=== PATIENT | male | born 1935 | race Caucasian/White ===

== ENCOUNTER 2017-05-24 12:36 | Inpatient (IN) ==
[2017-05-24 15:55] LABS: Basophils # 0.1 10*3/uL (0.0-0.2); Basophils % 0.3 % (0.0-0.8); Eosinophils # 0.2 10*3/uL (0.0-0.87); Eosinophils % 0.9 % (0.00-10.9); Hematocrit 43.4 VOL% (42.0-52.0); Hemoglobin 14.9 GM/DL (14.0-18.0); Immature Granulocytes % 0.9 %; Immature Granulocytes Absolute 0.18 #; Lymphocytes # 1.4 10*3/uL (1.4-4.0); Mean Corpuscular HGB Conc 34.3 GM/DL (32-36); Mean Corpuscular Hemoglobin 31 PG (27-34); Mean Corpuscular Volume 91.2 FL (87-102); Mean Platelet Volume 10.7 FL (9.6-12.0); Monocytes # 1.2 10*3/uL (0.11-0.8); Monocytes % 5.9 % (1.7-12.7); Neutrophils # 16.9 10*3/uL (1.4-7.4); Platelet Count 213 T/CUMM (130-400); Red Blood Count 4.76 MC/CUMM (3.8-5.5); Red Cell Distribution Width 13.3 % (9.3-17.3); White Blood Count 19.8 T/CUMM (4-12)
[2017-05-24 16:03] LABS: PT Patient Result 10.7 SECS
[2017-05-24 16:34] LABS: Bilirubin,Total 1.1 MG/DL (0.2-1.0); CKMB % 1.8 %; Calcium 9.9 MG/DL (8.5-10.1); Osmolality,Calculated 272.2 MOS/KG (273-304); Total Protein 8.1 G/DL (6.4-8.3)
[2017-05-24 16:42] LABS: Troponin I Only 5.94 NG/ML (0.00-0.045)
[2017-05-24] MEDS ORDERED: cefTRIAXone 1,000 MG in SODIUM CHLORIDE 0.9% 100 ML IV STA (17:02)
[2017-05-24] MEDS ORDERED: ASPIRIN 325 MG TABLET PO STA (17:02)
[2017-05-24] MEDS ORDERED: NITROGLYCERIN 2% OINT 1 INCH/GM PACK TOP STA (17:02)
[2017-05-24] MEDS ORDERED: MORPHINE 2 MG/1 ML SYRINGE IV STA (17:02)
[2017-05-24] MEDS ORDERED: ONDANSETRON 4 MG/2 ML VIAL IV STA (17:02)
[2017-05-24] MEDS ORDERED: FUROSEMIDE 40 MG/4 ML VIAL IV STA (17:04)
[2017-05-24] MEDS ORDERED: ENOXAPARIN 100 MG/ML SYRINGE SUBCUT STA (17:04)
[2017-05-24] MEDS ORDERED: NITROGLYCERIN 2% OINT 1 INCH/GM PACK TOP ONE (17:38)
[2017-05-24] MEDS ORDERED: FUROSEMIDE 40 MG/4 ML VIAL ONE (17:38)
[2017-05-24] MEDS ORDERED: ENOXAPARIN 100 MG/ML SYRINGE SUBCUT ONE (17:38)
[2017-05-24] MEDS ORDERED: MORPHINE 2 MG/1 ML SYRINGE ONE (17:39)
[2017-05-24] MEDS ORDERED: ONDANSETRON 4 MG/2 ML VIAL ONE (17:39)
[2017-05-24] MEDS ORDERED: cefTRIAXone 1,000 MG VIAL ONE (17:39)
[2017-05-24] MEDS ORDERED: ASPIRIN 325 MG TABLET ONE (17:39)
[2017-05-24 18:12] LABS: Lactic Acid 2.2 MMOL/L (0.4-2.0)
[2017-05-24 18:31] LABS: Apearance,Urine CLOUDY (Clear); Bacteria,Urine Many /HPF (Few); Bilirubin,Urine Negative (Negative); Blood, Urine Moderate mg/dL (Negative); Glucose,Urine (UA) Negative (Negative); Ketones,Urine 5 mg/dL (Negative); Mucus,Urine Many /LPF (Occasional); Nitrite,Urine Negative (Negative); Protein,Urine 100 MG/DL; RBC,Urine 10 /HPF (0-4); Squamous Epithelial Cell,Urine Occasional /HPF (0-10); Urine Color Yellow (Yellow); Urine Specific Gravity 1.014 (1.001-1.035); Urine Urobilinogen < 2.0 EU/DL (0.2-1.0); WBC,Urine 475 /HPF (0-6)
[2017-05-24] MEDS ORDERED: GLUCAGON 1 MG VIAL IM PRN (22:02)
[2017-05-24] MEDS ORDERED: DEXTROSE 50% 25 GM/50 ML VIAL IV PRN (22:02)
[2017-05-24] MEDS ORDERED: PRAVASTATIN 40 MG TABLET PO SCH (22:02)
[2017-05-24] MEDS ORDERED: ONDANSETRON 4 MG/2 ML VIAL IV PRN (22:02)
[2017-05-24] MEDS ORDERED: MAGNESIUM SULF RIDER 2 GM in PREMIX 1 EACH IV PRN (22:02)
[2017-05-24] MEDS ORDERED: POTASSIUM CHLORIDE 20 MEQ TABLET PO PRN (22:02)
[2017-05-24] MEDS ORDERED: MAGNESIUM SULF RIDER 4 GM in PREMIX 1 EACH IV PRN (22:02)
[2017-05-24] MEDS: LEVOFLOXACIN INJ 500 MG in PREMIX 1 EACH IV SCH (22:13)
[2017-05-24] MEDS: ROSUVASTATIN 20 MG TABLET PO SCH (22:37)
[2017-05-24] MEDS: CARVEDILOL 3.125 MG TABLET PO SCH (22:38)
[2017-05-24] MEDS: TAMSULOSIN 0.4 MG CAPSULE PO SCH (22:38)
[2017-05-24] MEDS: INSULIN REGULAR 100 UNIT/ML SUBCUT SCH (22:56)
[2017-05-24] MEDS: SODIUM CHLORIDE 0.9% 1,000 ML IV SCH (22:56)
[2017-05-24] MEDS: NITROGLYCERIN 2% OINT 1 INCH/GM PACK TOP SCH (23:42)
[2017-05-25 04:19] LABS: Basophils # 0.1 10*3/uL (0.0-0.2); Basophils % 0.4 % (0.0-0.8); Eosinophils # 0.3 10*3/uL (0.0-0.87); Hematocrit 38.5 VOL% (42.0-52.0); Hemoglobin 13.3 GM/DL (14.0-18.0); Immature Granulocytes % 0.6 %; Immature Granulocytes Absolute 0.08 #; Lymphocytes # 1.2 10*3/uL (1.4-4.0); Mean Corpuscular HGB Conc 34.5 GM/DL (32-36); Mean Corpuscular Hemoglobin 31 PG (27-34); Mean Corpuscular Volume 90.2 FL (87-102); Mean Platelet Volume 11.6 FL (9.6-12.0); Monocytes # 0.8 10*3/uL (0.11-0.8); Monocytes % 5.8 % (1.7-12.7); Neutrophils # 11.2 10*3/uL (1.4-7.4); Neutrophils % 82.2 % (38.7-73.9); Platelet Count 189 T/CUMM (130-400); Red Blood Count 4.27 MC/CUMM (3.8-5.5); Red Cell Distribution Width 13.2 % (9.3-17.3); White Blood Count 13.6 T/CUMM (4-12)
[2017-05-25 04:52] LABS: Albumin 3.3 G/DL (3.4-5.0); Bilirubin,Total 0.7 MG/DL (0.2-1.0); Calcium 8.8 MG/DL (8.5-10.1); Osmolality,Calculated 272.4 MOS/KG (273-304); Total Protein 6.8 G/DL (6.4-8.3)
[2017-05-25 04:53] LABS: Risk Ratio 3.05; VLDL CHOLESTEROL 39.6 MG/DL
[2017-05-25 05:09] LABS: Lactic Acid 2.2 MMOL/L (0.4-2.0)
[2017-05-25] MEDS: NITROGLYCERIN 2% OINT 1 INCH/GM PACK TOP SCH ×4 (06:22→23:40)
[2017-05-25] MEDS ORDERED: ASPIRIN EC 325 MG TABLET PO SCH (09:00)
[2017-05-25] MEDS: MULTIVITAMIN (CENTRUM) TABLET PO SCH (09:11)
[2017-05-25] MEDS: INSULIN REGULAR 100 UNIT/ML SUBCUT SCH ×4 (09:11→21:17)
[2017-05-25] MEDS: MULTIVITAMIN (BEROCCA) TABLET PO SCH (09:11)
[2017-05-25] MEDS: CARVEDILOL 3.125 MG TABLET PO SCH ×2 (09:11→21:17)
[2017-05-25] MEDS: PANTOPRAZOLE 40 MG TABLET PO SCH (09:12)
[2017-05-25] MEDS: ENOXAPARIN 100 MG/ML SYRINGE SUBCUT SCH ×2 (09:31→21:17)
[2017-05-25] MEDS ORDERED: GLUCAGON 1 MG VIAL IM PRN (11:23)
[2017-05-25] MEDS ORDERED: DEXTROSE 50% 25 GM/50 ML VIAL IV PRN (11:23)
[2017-05-25] MEDS: cefTRIAXone 1,000 MG in SYRINGE 1 EACH IV SCH (11:37)
[2017-05-25] MEDS ORDERED: ZALEPLON 5 MG CAPSULE PO PRN (11:37)
[2017-05-25] MEDS ORDERED: guaiFENesin/DM ER 600-30 MG TABLET PO PRN (11:37)
[2017-05-25] MEDS ORDERED: BISACODYL 5 MG TABLET PO PRN (11:37)
[2017-05-25] MEDS: TAMSULOSIN 0.4 MG CAPSULE PO SCH (21:17)
[2017-05-25] MEDS: ROSUVASTATIN 20 MG TABLET PO SCH (21:17)
[2017-05-25] MEDS: LEVOFLOXACIN INJ 500 MG in PREMIX 1 EACH IV SCH (21:18)
[2017-05-25] MEDS: SODIUM CHLORIDE 0.9% 1,000 ML IV SCH (22:38)
[2017-05-25] MEDS: ACETAMINOPHEN 325 MG TABLET PO PRN (23:40)
[2017-05-26 05:11] LABS: Basophils # 0.1 10*3/uL (0.0-0.2); Basophils % 0.6 % (0.0-0.8); Eosinophils # 0.4 10*3/uL (0.0-0.87); Eosinophils % 4.7 % (0.00-10.9); Hematocrit 34.4 VOL% (42.0-52.0); Hemoglobin 11.7 GM/DL (14.0-18.0); Immature Granulocytes % 0.9 %; Immature Granulocytes Absolute 0.07 #; Lymphocytes # 1.2 10*3/uL (1.4-4.0); Lymphocytes % 14.8 % (21.2-54.2); Mean Corpuscular Hemoglobin 31 PG (27-34); Mean Corpuscular Volume 91.2 FL (87-102); Mean Platelet Volume 10.8 FL (9.6-12.0); Monocytes # 0.8 10*3/uL (0.11-0.8); Monocytes % 9.7 % (1.7-12.7); Neutrophils # 5.4 10*3/uL (1.4-7.4); Neutrophils % 69.3 % (38.7-73.9); Platelet Count 181 T/CUMM (130-400); Red Blood Count 3.77 MC/CUMM (3.8-5.5); White Blood Count 7.8 T/CUMM (4-12)
[2017-05-26 05:41] LABS: Calcium 8.6 MG/DL (8.5-10.1); Osmolality,Calculated 277.1 MOS/KG (273-304); Potassium 3.9 MMOL/L (3.5-5.1)
[2017-05-26] MEDS: NITROGLYCERIN 2% OINT 1 INCH/GM PACK TOP SCH ×3 (06:13→18:35)
[2017-05-26] MEDS: ASPIRIN CHEW 81 MG TABLET PO SCH (09:40)
[2017-05-26] MEDS: MULTIVITAMIN (BEROCCA) TABLET PO SCH (09:40)
[2017-05-26] MEDS: ENOXAPARIN 100 MG/ML SYRINGE SUBCUT SCH ×2 (09:41→21:49)
[2017-05-26] MEDS: PANTOPRAZOLE 40 MG TABLET PO SCH (09:41)
[2017-05-26] MEDS: MULTIVITAMIN (CENTRUM) TABLET PO SCH (09:41)
[2017-05-26] MEDS: CARVEDILOL 3.125 MG TABLET PO SCH ×2 (09:41→21:48)
[2017-05-26] MEDS ORDERED: DEXTROSE 50% 25 GM/50 ML VIAL IV PRN (09:46)
[2017-05-26] MEDS ORDERED: GLUCAGON 1 MG VIAL IM PRN (09:46)
[2017-05-26] MEDS: INSULIN REGULAR 100 UNIT/ML SUBCUT SCH ×4 (09:49→21:48)
[2017-05-26] MEDS: cefTRIAXone 1,000 MG in SYRINGE 1 EACH IV SCH (11:03)
[2017-05-26] MEDS: INSULIN GLARGINE 100 UNIT/ML SUBCUT SCH (15:14)
[2017-05-26] MEDS ORDERED: POTASSIUM CHLORIDE RIDER 10 MEQ in PREMIX 1 EACH IV PRN (16:24)
[2017-05-26] MEDS ORDERED: MAGNESIUM SULF RIDER 2 GM in PREMIX 1 EACH IV PRN (16:24)
[2017-05-26] MEDS ORDERED: SIMETHICONE CHEW 80 MG TABLET PO PRN (17:14)
[2017-05-26] MEDS ORDERED: MAGNESIUM HYDROXIDE SUSP 30 ML UDCUP PO PRN (17:14)
[2017-05-26] MEDS ORDERED: diphenhydrAMINE CAP 25 MG CAPSULE PO PRN (17:15)
[2017-05-26] MEDS: ROSUVASTATIN 20 MG TABLET PO SCH (21:48)
[2017-05-26] MEDS: TAMSULOSIN 0.4 MG CAPSULE PO SCH (21:48)
[2017-05-26] MEDS: LEVOFLOXACIN INJ 500 MG in PREMIX 1 EACH IV SCH (21:50)
[2017-05-27] MEDS: NITROGLYCERIN 2% OINT 1 INCH/GM PACK TOP SCH ×3 (02:24→12:10)
[2017-05-27] MEDS: SODIUM CHLORIDE 0.9% 1,000 ML IV SCH ×3 (04:59→17:00)
[2017-05-27 05:01] LABS: Basophils # 0.1 10*3/uL (0.0-0.2); Basophils % 0.9 % (0.0-0.8); Eosinophils # 0.5 10*3/uL (0.0-0.87); Hematocrit 33.6 VOL% (42.0-52.0); Hemoglobin 11.9 GM/DL (14.0-18.0); Immature Granulocytes % 0.8 %; Immature Granulocytes Absolute 0.06 #; Lymphocytes # 1.1 10*3/uL (1.4-4.0); Lymphocytes % 14.4 % (21.2-54.2); Mean Corpuscular HGB Conc 35.4 GM/DL (32-36); Mean Corpuscular Hemoglobin 31 PG (27-34); Mean Corpuscular Volume 88.4 FL (87-102); Monocytes % 12.2 % (1.7-12.7); Neutrophils # 5.2 10*3/uL (1.4-7.4); Neutrophils % 65.7 % (38.7-73.9); Platelet Count 193 T/CUMM (130-400); Red Cell Distribution Width 13.1 % (9.3-17.3); White Blood Count 7.9 T/CUMM (4-12)
[2017-05-27 05:35] LABS: Calcium 8.2 MG/DL (8.5-10.1)
[2017-05-27] MEDS ORDERED: DIAZEPAM 5 MG TABLET PO ONE (06:00)
[2017-05-27] MEDS ORDERED: diphenhydrAMINE CAP 25 MG CAPSULE PO ONE (06:00)
[2017-05-27] MEDS ORDERED: HEPARIN/NACL 0.9% 2 UNITS/ML 2,000 ML IV ONE (06:51)
[2017-05-27] MEDS ORDERED: LIDOCAINE 1% 20 ML VIAL ONE (06:51)
[2017-05-27] MEDS ORDERED: VERAPAMIL 5 MG/2 ML VIAL ONE (07:11)
[2017-05-27] MEDS ORDERED: NITROGLYCERIN DRIP 50 MG/250 ML BOTTLE IV ONE (07:11)
[2017-05-27] MEDS: ASPIRIN CHEW 81 MG TABLET PO SCH ×2 (07:22→09:01)
[2017-05-27] MEDS: INSULIN REGULAR 100 UNIT/ML SUBCUT SCH ×4 (07:22→22:33)
[2017-05-27] MEDS: PANTOPRAZOLE 40 MG TABLET PO SCH ×2 (07:23→09:03)
[2017-05-27] MEDS: MULTIVITAMIN (BEROCCA) TABLET PO SCH ×2 (07:23→09:02)
[2017-05-27] MEDS: MULTIVITAMIN (CENTRUM) TABLET PO SCH ×2 (07:23→09:02)
[2017-05-27] MEDS: CARVEDILOL 3.125 MG TABLET PO SCH ×3 (07:23→21:38)
[2017-05-27] MEDS: ENOXAPARIN 100 MG/ML SYRINGE SUBCUT SCH ×3 (07:23→21:39)
[2017-05-27] MEDS ORDERED: MIDAZOLAM 2 MG/2 ML VIAL ONE (07:55)
[2017-05-27] MEDS ORDERED: HYDROmorphone 2 MG/1 ML VIAL ONE (07:55)
[2017-05-27] MEDS ORDERED: SODIUM CHLORIDE 0.9% 1,000 ML IV SCH (08:30)
[2017-05-27] MEDS: INSULIN GLARGINE 100 UNIT/ML SUBCUT SCH (09:02)
[2017-05-27] MEDS ORDERED: DEXTROSE 50% 25 GM/50 ML VIAL IV PRN (09:04)
[2017-05-27] MEDS ORDERED: GLUCAGON 1 MG VIAL IM PRN (09:04)
[2017-05-27 16:04] LABS: Apearance,Urine CLEAR (Clear); Bilirubin,Urine Negative (Negative); Blood, Urine Negative (Negative); Glucose,Urine (UA) Negative (Negative); Ketones,Urine Negative (Negative); Nitrite,Urine Negative (Negative); Protein,Urine Negative; RBC,Urine 1 /HPF (0-4); Urine Color Yellow (Yellow); Urine Specific Gravity 1.046 (1.001-1.035); Urine Urobilinogen < 2.0 EU/DL (0.2-1.0); WBC,Urine 11 /HPF (0-6)
[2017-05-27] MEDS: ROSUVASTATIN 20 MG TABLET PO SCH (21:38)
[2017-05-27] MEDS: TAMSULOSIN 0.4 MG CAPSULE PO SCH (21:38)
[2017-05-27] MEDS: LEVOFLOXACIN INJ 500 MG in PREMIX 1 EACH IV SCH (21:40)
[2017-05-28 05:18] LABS: Basophils # 0.1 10*3/uL (0.0-0.2); Basophils % 0.7 % (0.0-0.8); Eosinophils # 0.4 10*3/uL (0.0-0.87); Eosinophils % 5.3 % (0.00-10.9); Hematocrit 36.5 VOL% (42.0-52.0); Hemoglobin 12.5 GM/DL (14.0-18.0); Immature Granulocytes % 1.3 %; Immature Granulocytes Absolute 0.11 #; Lymphocytes # 1.4 10*3/uL (1.4-4.0); Lymphocytes % 17.5 % (21.2-54.2); Mean Corpuscular HGB Conc 34.2 GM/DL (32-36); Mean Corpuscular Hemoglobin 31 PG (27-34); Mean Corpuscular Volume 89.9 FL (87-102); Mean Platelet Volume 11.6 FL (9.6-12.0); Monocytes # 0.8 10*3/uL (0.11-0.8); Monocytes % 10.2 % (1.7-12.7); Neutrophils # 5.3 10*3/uL (1.4-7.4); Platelet Count 182 T/CUMM (130-400); Red Blood Count 4.06 MC/CUMM (3.8-5.5); Red Cell Distribution Width 13.3 % (9.3-17.3); White Blood Count 8.2 T/CUMM (4-12)
[2017-05-28 05:44] LABS: Calcium 8.2 MG/DL (8.5-10.1); Osmolality,Calculated 276.8 MOS/KG (273-304); Potassium 4.1 MMOL/L (3.5-5.1)
[2017-05-28 05:45] LABS: Calcium 8.2 MG/DL (8.5-10.1); Osmolality,Calculated 278.7 MOS/KG (273-304); Potassium 4.1 MMOL/L (3.5-5.1)
[2017-05-28] MEDS: INSULIN GLARGINE 100 UNIT/ML SUBCUT SCH (09:54)
[2017-05-28] MEDS: ENOXAPARIN 100 MG/ML SYRINGE SUBCUT SCH ×2 (09:55→21:13)
[2017-05-28] MEDS: MULTIVITAMIN (CENTRUM) TABLET PO SCH (09:55)
[2017-05-28] MEDS: INSULIN REGULAR 100 UNIT/ML SUBCUT SCH ×4 (09:55→21:14)
[2017-05-28] MEDS: ASPIRIN CHEW 81 MG TABLET PO SCH (09:55)
[2017-05-28] MEDS: LEVOFLOXACIN 500 MG TABLET PO SCH (09:55)
[2017-05-28] MEDS: MULTIVITAMIN (BEROCCA) TABLET PO SCH (09:55)
[2017-05-28] MEDS: CARVEDILOL 3.125 MG TABLET PO SCH ×2 (09:55→21:14)
[2017-05-28] MEDS: PANTOPRAZOLE 40 MG TABLET PO SCH (09:56)
[2017-05-28] MEDS ORDERED: INSULIN GLARGINE 100 UNIT/ML SUBCUT SCH (13:58)
[2017-05-28] MEDS: NITROGLYCERIN 2% OINT 1 INCH/GM PACK TOP PRN ×2 (15:36→21:29)
[2017-05-28] MEDS: ACETAMINOPHEN 325 MG TABLET PO PRN (15:36)
[2017-05-28] MEDS ORDERED: HYDROmorphone 2 MG/1 ML VIAL IV ONE (17:04)
[2017-05-28] MEDS ORDERED: ALUM/MAG/SIMETH/LIDO VISC 1:1 30 ML BOTTLE PO ONE (17:05)
[2017-05-28] MEDS: NITROGLYCERIN SL 0.4 MG TABLET SL PRN (17:26)
[2017-05-28] MEDS: ROSUVASTATIN 20 MG TABLET PO SCH (21:13)
[2017-05-28] MEDS: TAMSULOSIN 0.4 MG CAPSULE PO SCH (21:14)
[2017-05-29] MEDS: MORPHINE 2 MG/1 ML SYRINGE IV PRN ×2 (00:48→05:21)
[2017-05-29 05:22] LABS: Basophils # 0.1 10*3/uL (0.0-0.2); Basophils % 0.5 % (0.0-0.8); Eosinophils # 0.2 10*3/uL (0.0-0.87); Eosinophils % 1.5 % (0.00-10.9); Hematocrit 37.8 VOL% (42.0-52.0); Hemoglobin 12.7 GM/DL (14.0-18.0); Immature Granulocytes Absolute 0.13 #; Lymphocytes # 1.5 10*3/uL (1.4-4.0); Lymphocytes % 12.3 % (21.2-54.2); Mean Corpuscular HGB Conc 33.6 GM/DL (32-36); Mean Corpuscular Hemoglobin 31 PG (27-34); Mean Corpuscular Volume 91.1 FL (87-102); Mean Platelet Volume 10.7 FL (9.6-12.0); Monocytes # 1.1 10*3/uL (0.11-0.8); Neutrophils # 9.4 10*3/uL (1.4-7.4); Neutrophils % 75.7 % (38.7-73.9); Platelet Count 226 T/CUMM (130-400); Red Blood Count 4.15 MC/CUMM (3.8-5.5); Red Cell Distribution Width 13.2 % (9.3-17.3); White Blood Count 12.4 T/CUMM (4-12)
[2017-05-29] MEDS: NITROGLYCERIN 2% OINT 1 INCH/GM PACK TOP PRN (05:22)
[2017-05-29 05:43] LABS: Osmolality,Calculated 273.1 MOS/KG (273-304); Potassium 4.1 MMOL/L (3.5-5.1)
[2017-05-29] MEDS: NITROGLYCERIN SL 0.4 MG TABLET SL PRN ×2 (07:54→08:03)
[2017-05-29] MEDS ORDERED: DEXTROSE 50% 25 GM/50 ML VIAL IV PRN ×3 (09:25→15:56)
[2017-05-29] MEDS ORDERED: GLUCAGON 1 MG VIAL IM PRN (09:25)
[2017-05-29] MEDS ORDERED: CEFUROXIME INJ 1,500 MG in SYRINGE 1 EACH IV ONE (09:30)
[2017-05-29] MEDS ORDERED: SODIUM CHLORIDE 0.9% 1,000 ML IV SCH (09:30)
[2017-05-29] MEDS: INSULIN REGULAR 100 UNIT/ML SUBCUT SCH (09:45)
[2017-05-29] MEDS: CHLORHEXIDINE 4% SOLN 118 ML BOTTLE TOP SCH (09:46)
[2017-05-29] MEDS ORDERED: VANCOMYCIN 1,000 MG VIAL ONE (09:53)
[2017-05-29] MEDS ORDERED: CEFUROXIME 1,500 MG VIAL ONE (09:53)
[2017-05-29] MEDS ORDERED: PAPAVERINE 60 MG/2 ML VIAL ONE (09:53)
[2017-05-29] MEDS: CARVEDILOL 3.125 MG TABLET PO SCH ×2 (10:08→10:24)
[2017-05-29] MEDS: ASPIRIN CHEW 81 MG TABLET PO SCH (10:08)
[2017-05-29] MEDS: MULTIVITAMIN (CENTRUM) TABLET PO SCH (10:08)
[2017-05-29] MEDS: MULTIVITAMIN (BEROCCA) TABLET PO SCH (10:08)
[2017-05-29] MEDS ORDERED: SUFentanil 250 MCG/5 ML AMP ONE (10:08)
[2017-05-29] MEDS: ENOXAPARIN 100 MG/ML SYRINGE SUBCUT SCH (10:09)
[2017-05-29] MEDS: LEVOFLOXACIN 500 MG TABLET PO SCH ×2 (10:09→10:24)
[2017-05-29] MEDS ORDERED: MIDAZOLAM 10 MG/2 ML VIAL ONE ×3 (10:09→10:10)
[2017-05-29] MEDS: PANTOPRAZOLE 40 MG TABLET PO SCH (10:09)
[2017-05-29 11:33] LABS: Allen Test Positive
[2017-05-29 11:35] LABS: ABG Base Excess -3.3 MMOL/L (-2.5-2.5); ABG HCO3 21.7 MMOL/L (20-26); ABG PCO2 44.3 MM HG (35-48); ABG PH 7.321 (7.35-7.45); ABG TCO2 20.4 MMOL/L (23-27); Glucose Heart Surgery 202 MG/DL (74-106); Hematocrit Heart Surgery 37.8 PERCENT (42-52); Hemoglobin Heart Surgery 12.3 G/DL (14.0-18.0); Ionized Calcium Arterial 1.14 MMOL/L (1.21-1.46); PCO2 Patient Temp Arterial 44.3 MMHG; PH Patient Temp Arterial 7.321; Patient Temperature 37 CELCIUS; Sodium Heart/CVR 131 MMOL/L (135-145)
[2017-05-29 11:37] LABS: ABG Oxygen Saturation 99.3 % (95-100)
[2017-05-29] MEDS ORDERED: NITROPRUSSIDE 50 MG/2 ML VIAL ONE (13:07)
[2017-05-29] MEDS ORDERED: CALCIUM CHLORIDE 1,000 MG/10 ML SYRINGE IV ONE (13:19)
[2017-05-29] MEDS ORDERED: ATROPINE 1 MG/10 ML SYRINGE ONE (13:19)
[2017-05-29] MEDS ORDERED: EPINEPHrine 1 MG/10 ML SYRINGE ONE (13:20)
[2017-05-29 13:33] LABS: Hematocrit Heart Surgery 24.5 PERCENT (42-52); Hemoglobin Heart Surgery 7.8 G/DL (14.0-18.0); PCO2 Patient Temp Venous 34.5 MM HG; PH Patient Temp Venous 7.441; PO2 Patient Temp Venous 42.2 MM HG; Potassium Heart/CVR 4.3 MMOL/L (3.5-5.1); VBG Base Excess -0.3 MEQ/L (0-4); VBG Oxygen Saturation 83.3 %; VBG PH 7.412; VBG PO2 48.3 MMHG (17-40)
[2017-05-29 14:08] LABS: Hemoglobin Heart Surgery 8.4 G/DL (14.0-18.0); PCO2 Patient Temp Venous 27.4 MM HG; PH Patient Temp Venous 7.509; Potassium Heart/CVR 4.1 MMOL/L (3.5-5.1); VBG Base Excess -0.5 MEQ/L (0-4); VBG HCO3 23.8 MEQ/L (24-28); VBG Oxygen Saturation 85.1 %; VBG PCO2 33.2 MMHG (41-51); VBG PH 7.449
[2017-05-29] MEDS ORDERED: ALBUMIN 5% 12.5 GM/250 ML VIAL IV ONE (14:23)
[2017-05-29 14:59] LABS: ABG Base Excess -4.3 MMOL/L (-2.5-2.5); ABG HCO3 20.5 MMOL/L (20-26); ABG Oxygen Saturation 98.9 % (95-100); ABG PCO2 36.3 MM HG (35-48); ABG PH 7.369 (7.35-7.45); ABG PO2 244.2 MM HG (80-95); ABG TCO2 21.6 MMOL/L (23-27); Glucose Heart Surgery 275 MG/DL (74-106); Hemoglobin Heart Surgery 10.9 G/DL (14.0-18.0); Ionized Calcium Arterial 1.11 MMOL/L (1.21-1.46); Potassium Heart/CVR 3.5 MMOL/L (3.5-5.1); Sodium Heart/CVR 127 MMOL/L (135-145)
[2017-05-29 15:01] LABS: Patient Temperature 37 CELCIUS
[2017-05-29] MEDS ORDERED: MAGNESIUM SULFATE 1 GM/2 ML VIAL ONE (15:09)
[2017-05-29] MEDS ORDERED: ALBUMIN 25% 25 GM/100 ML VIAL IV ONE (15:09)
[2017-05-29] MEDS ORDERED: PROTAMINE SULFATE 250 MG/25 ML VIAL IV ONE (15:09)
[2017-05-29] MEDS ORDERED: DEXTROSE 5% KCL 20 MEQ 40 MEQ/2,000 ML BAG IV ONE (15:09)
[2017-05-29] MEDS ORDERED: HEPARIN 10,000 UNIT/10 ML VIAL ONE (15:09)
[2017-05-29] MEDS ORDERED: SODIUM BICARBONATE 50 MEQ/50 ML SYRINGE IV ONE (15:09)
[2017-05-29] MEDS ORDERED: MANNITOL 12.5 GM/50 ML VIAL IV ONE (15:10)
[2017-05-29] MEDS ORDERED: PHENYLEPHRINE 10 MG/1 ML VIAL IV ONE ×2 (15:10→16:02)
[2017-05-29] MEDS ORDERED: PROTAMINE SULFATE 50 MG/5 ML VIAL IV ONE ×3 (15:10→16:22)
[2017-05-29] MEDS ORDERED: FUROSEMIDE 20 MG/2 ML VIAL ONE ×2 (15:10→16:01)
[2017-05-29] MEDS ORDERED: methylPREDNISolone SOD SUC 1,000 MG/8 ML VIAL ONE (15:10)
[2017-05-29] MEDS ORDERED: DOBUTamine 500 MG/250 ML PREMIX IV ONE ×2 (15:17→16:04)
[2017-05-29] MEDS ORDERED: POTASSIUM CHLORIDE RIDER 100 ML IV ONE (15:21)
[2017-05-29] MEDS ORDERED: MORPHINE 2 MG/1 ML SYRINGE IV PRN (15:56)
[2017-05-29] MEDS ORDERED: POTASSIUM CHLORIDE RIDER 10 MEQ in PREMIX 1 EACH IV PRN (15:56)
[2017-05-29] MEDS ORDERED: MORPHINE 10 MG/1 ML VIAL IV PRN (15:56)
[2017-05-29] MEDS ORDERED: ACETAMINOPHEN 650 MG SUPP RECTAL PRN (15:56)
[2017-05-29] MEDS ORDERED: VECURONIUM 10 MG VIAL IV PRN ×2 (15:56)
[2017-05-29] MEDS ORDERED: MAGNESIUM SULF RIDER 4 GM in PREMIX 1 EACH IV PRN (15:56)
[2017-05-29] MEDS ORDERED: CALCIUM CHLORIDE 1,000 MG/10 ML SYRINGE IV PRN (15:56)
[2017-05-29] MEDS ORDERED: MAGNESIUM SULF RIDER 2 GM in PREMIX 1 EACH IV PRN (15:56)
[2017-05-29] MEDS ORDERED: PHENYLEPHRINE DRIP 40 MG/250 ML PREMIX IV PRN (15:56)
[2017-05-29] MEDS ORDERED: ONDANSETRON 4 MG/2 ML VIAL IV PRN (15:56)
[2017-05-29] MEDS ORDERED: MIDAZOLAM 2 MG/2 ML VIAL IV PRN (15:56)
[2017-05-29] MEDS ORDERED: NITROPRUSSIDE 100 MG in DEXTROSE 5% 250 ML IV PRN (15:56)
[2017-05-29] MEDS ORDERED: INSULIN REGULAR 100 UNIT/ML IV ONE (15:56)
[2017-05-29] MEDS ORDERED: MIDAZOLAM 10 MG/2 ML VIAL IV PRN (15:56)
[2017-05-29] MEDS ORDERED: SODIUM CHLORIDE 0.45% 1,000 ML IV SCH ×2 (16:00)
[2017-05-29] MEDS ORDERED: CALCIUM CHLORIDE 1,000 MG/10 ML VIAL IV ONE (16:01)
[2017-05-29] MEDS ORDERED: SEVOFLURANE 1 UNIT/15 MINUTE INH ONE (16:01)
[2017-05-29] MEDS ORDERED: TRANEXAMIC ACID 1,000 MG/10 ML VIAL IV ONE (16:01)
[2017-05-29] MEDS ORDERED: SUCCINYLCHOLINE 200 MG/10 ML VIAL ONE (16:02)
[2017-05-29] MEDS ORDERED: VECURONIUM 10 MG VIAL IV ONE (16:02)
[2017-05-29 16:03] LABS: ABG Base Excess -2.9 MMOL/L (-2.5-2.5); ABG HCO3 19.8 MMOL/L (20-26); ABG Oxygen Saturation 98.2 % (95-100); ABG PCO2 28.3 MM HG (35-48); ABG PH 7.463 (7.35-7.45); ABG PO2 121.7 MM HG (80-95); ABG TCO2 20.7 MMOL/L (23-27); Glucose Heart Surgery 257 MG/DL (74-106); Hemoglobin Heart Surgery 11.6 G/DL (14.0-18.0); Potassium Heart/CVR 3.8 MMOL/L (3.5-5.1)
[2017-05-29] MEDS ORDERED: SODIUM CHLORIDE 0.9% 100 ML IV ONE (16:03)
[2017-05-29] MEDS ORDERED: SODIUM CHLORIDE 0.9% 500 ML IV ONE (16:03)
[2017-05-29] MEDS ORDERED: LACTATED RINGERS 3,000 ML IV ONE (16:03)
[2017-05-29] MEDS ORDERED: SODIUM CHLORIDE 0.9% 2,000 ML IV ONE (16:03)
[2017-05-29] MEDS ORDERED: ROCURONIUM 100 MG/10 ML VIAL IV ONE (16:03)
[2017-05-29] MEDS ORDERED: EPINEPHrine 1 MG/ML VIAL ONE (16:04)
[2017-05-29] MEDS ORDERED: AMIODARONE 150 MG/3 ML VIAL ONE (16:04)
[2017-05-29 16:06] LABS: Basophils % 0.3 % (0.0-0.8); Eosinophils # 0.1 10*3/uL (0.0-0.87); Eosinophils % 0.8 % (0.00-10.9); Hematocrit 32.9 VOL% (42.0-52.0); Immature Granulocytes % 2.8 %; Lymphocytes # 0.9 10*3/uL (1.4-4.0); Lymphocytes % 6.5 % (21.2-54.2); Mean Corpuscular HGB Conc 33.4 GM/DL (32-36); Mean Corpuscular Hemoglobin 31 PG (27-34); Mean Corpuscular Volume 92.2 FL (87-102); Mean Platelet Volume 10.4 FL (9.6-12.0); Monocytes # 0.6 10*3/uL (0.11-0.8); Neutrophils # 12.3 10*3/uL (1.4-7.4); Neutrophils % 85.6 % (38.7-73.9); Platelet Count 135 T/CUMM (130-400); Red Blood Count 3.57 MC/CUMM (3.8-5.5); Red Cell Distribution Width 13.2 % (9.3-17.3); White Blood Count 14.4 T/CUMM (4-12)
[2017-05-29] MEDS: POTASSIUM CHLORIDE RIDER 20 MEQ in PREMIX 1 EACH IV PRN ×4 (16:10→23:56)
[2017-05-29 16:15] LABS: INR 1.5; PT Patient Result 15.4 SECS; Partial Thromboplastin Time 30.3 SECS (0-40)
[2017-05-29 16:28] LABS: Albumin 2.9 G/DL (3.4-5.0); Bilirubin,Total 1.2 MG/DL (0.2-1.0); Calcium 7.9 MG/DL (8.5-10.1); Osmolality,Calculated 278.1 MOS/KG (273-304); Total Protein 5.5 G/DL (6.4-8.3)
[2017-05-29 16:30] LABS: CKMB % 5.8 %
[2017-05-29] MEDS ORDERED: DOBUTamine 500 MG/250 ML PREMIX IV SCH (16:30)
[2017-05-29] MEDS ORDERED: AMIODARONE INJ 450 MG in DEXTROSE 5% 241 ML IV SCH ×2 (16:30→22:30)
[2017-05-29 16:31] LABS: Troponin I Only 3.57 NG/ML (0.00-0.045)
[2017-05-29] MEDS ORDERED: HEPARIN/NACL 0.9% 2 UNITS/ML 500 ML IV ONE (16:49)
[2017-05-29] MEDS: INSULIN REGULAR DRIP 100 ML IV SCH (17:24)
[2017-05-29] MEDS: KETOROLAC 30 MG/1 ML VIAL IV SCH ×2 (17:27→21:34)
[2017-05-29 18:32] LABS: ABG Base Excess -1.7 MMOL/L (-2.5-2.5); ABG Oxygen Saturation 98.7 % (95-100); ABG PCO2 31.4 MM HG (35-48); ABG PH 7.445 (7.35-7.45); ABG TCO2 19.2 MMOL/L (23-27); Glucose Heart Surgery 279 MG/DL (74-106); Hematocrit Heart Surgery 35.5 PERCENT (42-52); Hemoglobin Heart Surgery 11.5 G/DL (14.0-18.0); Potassium Heart/CVR 4.1 MMOL/L (3.5-5.1)
[2017-05-29] MEDS: INSULIN REGULAR 100 UNIT/ML IV PRN ×3 (19:43→23:05)
[2017-05-29] MEDS: LACTATED RINGERS 250 ML IV PRN ×6 (19:55→23:47)
[2017-05-29] MEDS ORDERED: FUROSEMIDE 40 MG/4 ML VIAL IV PRN (20:43)
[2017-05-29] MEDS: ALBUMIN 5% 12.5 GM in PREMIX 1 EACH IV PRN ×2 (20:53→21:10)
[2017-05-29] MEDS ORDERED: CHLORHEXIDINE 0.12% ORAL RINSE 60 ML BOTTLE SWISH/SPIT SCH ×2 (21:00)
[2017-05-29] MEDS ORDERED: CEFUROXIME INJ 1,500 MG in SODIUM CHLORIDE 0.9% 100 ML IV SCH (22:00)
[2017-05-29 23:46] LABS: ABG Base Excess -3.3 MMOL/L (-2.5-2.5); ABG HCO3 21.7 MMOL/L (20-26); ABG PCO2 30.5 MM HG (35-48); ABG PH 7.428 (7.35-7.45); ABG TCO2 18.1 MMOL/L (23-27); Glucose Heart Surgery 216 MG/DL (74-106); Hematocrit Heart Surgery 32.7 PERCENT (42-52); Hemoglobin Heart Surgery 10.6 G/DL (14.0-18.0); Potassium Heart/CVR 3.7 MMOL/L (3.5-5.1)
[2017-05-30] MEDS: LACTATED RINGERS 250 ML IV PRN ×2 (00:23→01:22)
[2017-05-30] MEDS: INSULIN REGULAR 100 UNIT/ML IV PRN ×2 (01:21→03:18)
[2017-05-30 01:44] LABS: CKMB % 5.7 %
[2017-05-30] MEDS: INSULIN REGULAR DRIP 100 ML IV SCH (01:51)
[2017-05-30 01:53] LABS: Troponin I Only 2.53 NG/ML (0.00-0.045)
[2017-05-30 03:19] LABS: ABG Base Excess -2.5 MMOL/L (-2.5-2.5); ABG HCO3 22.4 MMOL/L (20-26); ABG Oxygen Saturation 98.4 % (95-100); ABG PCO2 29.5 MM HG (35-48); ABG PH 7.451 (7.35-7.45); ABG TCO2 18.3 MMOL/L (23-27); Glucose Heart Surgery 156 MG/DL (74-106); Hematocrit Heart Surgery 34.1 PERCENT (42-52); Potassium Heart/CVR 3.6 MMOL/L (3.5-5.1)
[2017-05-30 03:24] LABS: Basophils % 0.1 % (0.0-0.8); Hematocrit 32.5 VOL% (42.0-52.0); Immature Granulocytes % 0.9 %; Immature Granulocytes Absolute 0.14 #; Lymphocytes # 0.6 10*3/uL (1.4-4.0); Mean Corpuscular HGB Conc 33.8 GM/DL (32-36); Mean Corpuscular Hemoglobin 31 PG (27-34); Mean Corpuscular Volume 91.5 FL (87-102); Mean Platelet Volume 10.2 FL (9.6-12.0); Monocytes # 0.2 10*3/uL (0.11-0.8); Monocytes % 1.5 % (1.7-12.7); Neutrophils # 14.5 10*3/uL (1.4-7.4); Neutrophils % 93.5 % (38.7-73.9); Platelet Count 153 T/CUMM (130-400); Red Blood Count 3.55 MC/CUMM (3.8-5.5); Red Cell Distribution Width 13.4 % (9.3-17.3); White Blood Count 15.5 T/CUMM (4-12)
[2017-05-30] MEDS: KETOROLAC 30 MG/1 ML VIAL IV SCH ×4 (03:28→21:39)
[2017-05-30] MEDS: POTASSIUM CHLORIDE RIDER 20 MEQ in PREMIX 1 EACH IV PRN ×2 (03:28→05:11)
[2017-05-30 03:43] LABS: Band Neutrophils 7 % (0-10); Lymphocytes 10 % (20-55); Macrocytosis 1+; Platelet Estimate Normal; Segmented Neutrophils 79 % (50-85); Total Cells Counted 100
[2017-05-30 03:49] LABS: Albumin 3.1 G/DL (3.4-5.0); Bilirubin,Direct 0.21 MG/DL (0.0-0.20); Bilirubin,Total 0.6 MG/DL (0.2-1.0); Calcium 7.8 MG/DL (8.5-10.1); Osmolality,Calculated 276.7 MOS/KG (273-304); Potassium 3.9 MMOL/L (3.5-5.1); Total Protein 5.9 G/DL (6.4-8.3)
[2017-05-30 04:06] LABS: ABG Base Excess -1.7 MMOL/L (-2.5-2.5); ABG Oxygen Saturation 98.7 % (95-100); ABG PH 7.449 (7.35-7.45); ABG TCO2 19.2 MMOL/L (23-27); Glucose Heart Surgery 134 MG/DL (74-106); Hematocrit Heart Surgery 34.5 PERCENT (42-52); Hemoglobin Heart Surgery 11.2 G/DL (14.0-18.0)
[2017-05-30 04:40] LABS: ABG Base Excess -1.6 MMOL/L (-2.5-2.5); ABG HCO3 23.1 MMOL/L (20-26); ABG Oxygen Saturation 98.4 % (95-100); ABG PCO2 29.9 MM HG (35-48); ABG PO2 98.4 MM HG (80-95); Glucose Heart Surgery 120 MG/DL (74-106); Hematocrit Heart Surgery 34.1 PERCENT (42-52); Potassium Heart/CVR 3.8 MMOL/L (3.5-5.1)
[2017-05-30 05:33] LABS: ABG Base Excess -1.3 MMOL/L (-2.5-2.5); ABG HCO3 23.3 MMOL/L (20-26); ABG Oxygen Saturation 98.8 % (95-100); ABG PCO2 30.4 MM HG (35-48); ABG PH 7.461 (7.35-7.45); ABG TCO2 19.4 MMOL/L (23-27); Glucose Heart Surgery 97 MG/DL (74-106); Hematocrit Heart Surgery 33.6 PERCENT (42-52); Hemoglobin Heart Surgery 10.9 G/DL (14.0-18.0); Potassium Heart/CVR 4.3 MMOL/L (3.5-5.1)
[2017-05-30 06:46] LABS: ABG Base Excess -2.1 MMOL/L (-2.5-2.5); ABG HCO3 22.6 MMOL/L (20-26); ABG Oxygen Saturation 98.8 % (95-100); ABG PCO2 29.6 MM HG (35-48); ABG PH 7.456 (7.35-7.45); ABG TCO2 18.6 MMOL/L (23-27); Glucose Heart Surgery 82 MG/DL (74-106); Hematocrit Heart Surgery 33.5 PERCENT (42-52); Hemoglobin Heart Surgery 10.8 G/DL (14.0-18.0)
[2017-05-30] MEDS ORDERED: MAGNESIUM HYDROXIDE SUSP 30 ML UDCUP PO PRN ×2 (08:19→08:32)
[2017-05-30] MEDS ORDERED: SIMETHICONE CHEW 80 MG TABLET PO PRN (08:19)
[2017-05-30] MEDS ORDERED: oxyCODONE/ACETAMINOPHEN 5-325 MG TABLET PO PRN (08:32)
[2017-05-30] MEDS ORDERED: DEXTROSE 50% 25 GM/50 ML VIAL IV PRN ×2 (08:32)
[2017-05-30] MEDS ORDERED: MAGNESIUM SULF RIDER 2 GM in PREMIX 1 EACH IV PRN (08:32)
[2017-05-30] MEDS ORDERED: MAGNESIUM SULF RIDER 4 GM in PREMIX 1 EACH IV PRN (08:32)
[2017-05-30] MEDS ORDERED: MORPHINE 2 MG/1 ML SYRINGE IV PRN (08:32)
[2017-05-30] MEDS ORDERED: ACETAMINOPHEN 325 MG TABLET PO PRN (08:32)
[2017-05-30] MEDS ORDERED: ONDANSETRON 4 MG/2 ML VIAL IV PRN (08:32)
[2017-05-30] MEDS ORDERED: ALUMINUM/MAGNES/SIMETH MAX STR 30 ML UDCUP PO PRN (08:32)
[2017-05-30] MEDS ORDERED: POTASSIUM CHLORIDE 20 MEQ TABLET PO PRN (08:32)
[2017-05-30] MEDS ORDERED: GLUCAGON 1 MG VIAL IM PRN ×2 (08:32)
[2017-05-30] MEDS ORDERED: ZALEPLON 5 MG CAPSULE PO PRN (08:32)
[2017-05-30] MEDS: SODIUM CHLOR 0.45% KCL 20 MEQ 20 MEQ/1,000 ML BAG IV SCH (09:19)
[2017-05-30] MEDS: guaiFENesin/DM ER 600-30 MG TABLET PO PRN (09:20)
[2017-05-30] MEDS: CARVEDILOL 3.125 MG TABLET PO SCH ×2 (09:20→17:14)
[2017-05-30] MEDS: FERROUS SULFATE 325 MG TABLET PO SCH (09:20)
[2017-05-30] MEDS: ASPIRIN EC 325 MG TABLET PO SCH (09:20)
[2017-05-30] MEDS: LEVOFLOXACIN 500 MG TABLET PO SCH (09:20)
[2017-05-30] MEDS: DOCUSATE SODIUM 100 MG CAPSULE PO SCH (09:20)
[2017-05-30] MEDS: PANTOPRAZOLE 40 MG TABLET PO SCH (09:21)
[2017-05-30] MEDS: CHLORHEXIDINE 0.12% ORAL RINSE 60 ML BOTTLE SWISH/SPIT SCH ×2 (09:21→21:39)
[2017-05-30] MEDS: CHLORHEXIDINE 4% SOLN 118 ML BOTTLE TOP SCH (11:50)
[2017-05-30] MEDS: INSULIN REGULAR 100 UNIT/ML SUBCUT SCH ×2 (11:50→21:49)
[2017-05-30] MEDS ORDERED: INSULIN REGULAR 100 UNIT/ML SUBCUT SCH (21:00)
[2017-05-30] MEDS: ROSUVASTATIN 20 MG TABLET PO SCH (21:37)
[2017-05-30] MEDS: TAMSULOSIN 0.4 MG CAPSULE PO SCH (21:38)
[2017-05-31] MEDS: KETOROLAC 30 MG/1 ML VIAL IV SCH ×4 (03:52→20:57)
[2017-05-31] MEDS ORDERED: FUROSEMIDE 40 MG/4 ML VIAL IV ONE (06:00)
[2017-05-31 06:08] LABS: Basophils % 0.1 % (0.0-0.8); Hematocrit 31.9 VOL% (42.0-52.0); Hemoglobin 10.4 GM/DL (14.0-18.0); Immature Granulocytes % 1.2 %; Immature Granulocytes Absolute 0.23 #; Lymphocytes # 0.6 10*3/uL (1.4-4.0); Lymphocytes % 3.5 % (21.2-54.2); Mean Corpuscular HGB Conc 32.6 GM/DL (32-36); Mean Corpuscular Hemoglobin 30 PG (27-34); Mean Corpuscular Volume 93.3 FL (87-102); Mean Platelet Volume 11.2 FL (9.6-12.0); Monocytes # 0.7 10*3/uL (0.11-0.8); Monocytes % 3.6 % (1.7-12.7); Neutrophils # 16.9 10*3/uL (1.4-7.4); Neutrophils % 91.6 % (38.7-73.9); Platelet Count 163 T/CUMM (130-400); Red Blood Count 3.42 MC/CUMM (3.8-5.5); Red Cell Distribution Width 13.9 % (9.3-17.3); White Blood Count 18.5 T/CUMM (4-12)
[2017-05-31 06:29] LABS: Albumin 2.8 G/DL (3.4-5.0); Bilirubin,Direct 0.13 MG/DL (0.0-0.20); Bilirubin,Indirect 0.3 MG/DL (0.0-1.0); Bilirubin,Total 0.4 MG/DL (0.2-1.0); CKMB % 2.5 %; Calcium 7.8 MG/DL (8.5-10.1); Osmolality,Calculated 281.2 MOS/KG (273-304); Potassium 4.7 MMOL/L (3.5-5.1); Total Protein 5.5 G/DL (6.4-8.3)
[2017-05-31 06:30] LABS: Troponin I Only 0.977 NG/ML (0.00-0.045)
[2017-05-31 06:42] LABS: Band Neutrophils 8 % (0-10); Lymphocytes 5 % (20-55); Segmented Neutrophils 85 % (50-85); Total Cells Counted 100
[2017-05-31 06:43] LABS: Burr Cells Slight; Hypochromasia 1+; Microcytosis Slight
[2017-05-31 06:44] LABS: Platelet Estimate Adequate
[2017-05-31] MEDS: INSULIN REGULAR 100 UNIT/ML SUBCUT SCH ×4 (09:22→20:57)
[2017-05-31] MEDS: FERROUS SULFATE 325 MG TABLET PO SCH (09:23)
[2017-05-31] MEDS: CARVEDILOL 3.125 MG TABLET PO SCH ×2 (09:23→17:08)
[2017-05-31] MEDS: PANTOPRAZOLE 40 MG TABLET PO SCH (09:23)
[2017-05-31] MEDS: DOCUSATE SODIUM 100 MG CAPSULE PO SCH (09:23)
[2017-05-31] MEDS: ASPIRIN EC 325 MG TABLET PO SCH (09:23)
[2017-05-31] MEDS: LEVOFLOXACIN 500 MG TABLET PO SCH (09:23)
[2017-05-31] MEDS: CHLORHEXIDINE 0.12% ORAL RINSE 60 ML BOTTLE SWISH/SPIT SCH ×2 (09:24→20:58)
[2017-05-31] MEDS: SODIUM CHLOR 0.45% KCL 20 MEQ 20 MEQ/1,000 ML BAG IV SCH (09:24)
[2017-05-31] MEDS ORDERED: NITROGLYCERIN SL 0.4 MG TABLET SL PRN (11:42)
[2017-05-31] MEDS ORDERED: BISACODYL 5 MG TABLET PO PRN (11:52)
[2017-05-31] MEDS: glipiZIDE 10 MG TABLET PO SCH (12:51)
[2017-05-31] MEDS: TAMSULOSIN 0.4 MG CAPSULE PO SCH (20:57)
[2017-05-31] MEDS: guaiFENesin/DM ER 600-30 MG TABLET PO PRN (20:57)
[2017-05-31] MEDS: ROSUVASTATIN 20 MG TABLET PO SCH (20:57)
[2017-06-01] MEDS: KETOROLAC 30 MG/1 ML VIAL IV SCH (03:58)
[2017-06-01 04:51] LABS: Basophils % 0.1 % (0.0-0.8); Hematocrit 32.9 VOL% (42.0-52.0); Hemoglobin 10.8 GM/DL (14.0-18.0); Immature Granulocytes % 1.3 %; Lymphocytes # 1.5 10*3/uL (1.4-4.0); Lymphocytes % 9.1 % (21.2-54.2); Mean Corpuscular HGB Conc 32.8 GM/DL (32-36); Mean Corpuscular Hemoglobin 30 PG (27-34); Mean Corpuscular Volume 91.4 FL (87-102); Mean Platelet Volume 10.7 FL (9.6-12.0); Monocytes # 0.7 10*3/uL (0.11-0.8); Monocytes % 4.2 % (1.7-12.7); Neutrophils # 13.6 10*3/uL (1.4-7.4); Neutrophils % 85.3 % (38.7-73.9); Platelet Count 210 T/CUMM (130-400); Red Cell Distribution Width 13.8 % (9.3-17.3); White Blood Count 15.9 T/CUMM (4-12)
[2017-06-01 05:09] LABS: Calcium 8.1 MG/DL (8.5-10.1); Osmolality,Calculated 283.7 MOS/KG (273-304); Potassium 4.4 MMOL/L (3.5-5.1)
[2017-06-01 05:16] LABS: Alanine Aminotransferase 70 U/L (16-61); Albumin 2.7 G/DL (3.4-5.0); Alkaline Phosphatase 69 U/L (45-117); Aspartate Amino Transferase 65 U/L (0-37); Bilirubin,Indirect 0.4 MG/DL (0.0-1.0); Blood Urea Nitrogen 32 MG/DL (7-18); Calcium 8.3 MG/DL (8.5-10.1); Glucose 149 MG/DL (74-106); Osmolality,Calculated 286.5 MOS/KG (273-304); Potassium 4.4 MMOL/L (3.5-5.1); Sodium 139 MMOL/L (136-145); Total Protein 5.7 G/DL (6.4-8.3)
[2017-06-01] MEDS: INSULIN REGULAR 100 UNIT/ML SUBCUT SCH ×3 (08:10→15:42)
[2017-06-01] MEDS: CHLORHEXIDINE 0.12% ORAL RINSE 60 ML BOTTLE SWISH/SPIT SCH ×2 (08:49→21:27)
[2017-06-01] MEDS: LEVOFLOXACIN 500 MG TABLET PO SCH (08:49)
[2017-06-01] MEDS: DOCUSATE SODIUM 100 MG CAPSULE PO SCH (08:49)
[2017-06-01] MEDS: CARVEDILOL 3.125 MG TABLET PO SCH ×2 (08:49→16:37)
[2017-06-01] MEDS: FERROUS SULFATE 325 MG TABLET PO SCH (08:49)
[2017-06-01] MEDS: PANTOPRAZOLE 40 MG TABLET PO SCH (08:49)
[2017-06-01] MEDS: ASPIRIN EC 325 MG TABLET PO SCH (08:49)
[2017-06-01] MEDS: glipiZIDE 10 MG TABLET PO SCH (08:49)
[2017-06-01] MEDS: guaiFENesin/DM ER 600-30 MG TABLET PO PRN (21:24)
[2017-06-01] MEDS: ROSUVASTATIN 20 MG TABLET PO SCH (21:24)
[2017-06-01] MEDS: TAMSULOSIN 0.4 MG CAPSULE PO SCH (21:25)
[2017-06-02] MEDS: INSULIN REGULAR 100 UNIT/ML SUBCUT SCH ×5 (00:15→21:43)
[2017-06-02 04:59] LABS: Basophils % 0.1 % (0.0-0.8); Eosinophils # 0.2 10*3/uL (0.0-0.87); Eosinophils % 1.4 % (0.00-10.9); Hematocrit 37.1 VOL% (42.0-52.0); Hemoglobin 12.2 GM/DL (14.0-18.0); Immature Granulocytes % 1.8 %; Immature Granulocytes Absolute 0.26 #; Lymphocytes # 2.2 10*3/uL (1.4-4.0); Mean Corpuscular HGB Conc 32.9 GM/DL (32-36); Mean Corpuscular Hemoglobin 30 PG (27-34); Mean Corpuscular Volume 92.5 FL (87-102); Mean Platelet Volume 10.3 FL (9.6-12.0); Monocytes # 0.7 10*3/uL (0.11-0.8); Monocytes % 4.8 % (1.7-12.7); Neutrophils # 11.1 10*3/uL (1.4-7.4); Neutrophils % 76.9 % (38.7-73.9); Platelet Count 273 T/CUMM (130-400); Red Blood Count 4.01 MC/CUMM (3.8-5.5); White Blood Count 14.4 T/CUMM (4-12)
[2017-06-02 05:47] LABS: Calcium 8.3 MG/DL (8.5-10.1); Osmolality,Calculated 280.7 MOS/KG (273-304); Potassium 4.4 MMOL/L (3.5-5.1)
[2017-06-02] MEDS: FERROUS SULFATE 325 MG TABLET PO SCH (08:38)
[2017-06-02] MEDS: PANTOPRAZOLE 40 MG TABLET PO SCH (08:38)
[2017-06-02] MEDS: glipiZIDE 10 MG TABLET PO SCH (08:38)
[2017-06-02] MEDS: DOCUSATE SODIUM 100 MG CAPSULE PO SCH (08:39)
[2017-06-02] MEDS: ASPIRIN EC 325 MG TABLET PO SCH (08:39)
[2017-06-02] MEDS: CHLORHEXIDINE 0.12% ORAL RINSE 60 ML BOTTLE SWISH/SPIT SCH ×2 (08:39→21:43)
[2017-06-02] MEDS: CARVEDILOL 3.125 MG TABLET PO SCH ×2 (08:39→17:19)
[2017-06-02] MEDS: LEVOFLOXACIN 500 MG TABLET PO SCH (08:39)
[2017-06-02] MEDS: LISINOPRIL 2.5 MG TABLET PO SCH (17:10)
[2017-06-02] MEDS: ROSUVASTATIN 20 MG TABLET PO SCH (21:43)
[2017-06-02] MEDS: guaiFENesin/DM ER 600-30 MG TABLET PO PRN (21:43)
[2017-06-02] MEDS: TAMSULOSIN 0.4 MG CAPSULE PO SCH (21:43)
[2017-06-03 05:00] LABS: Basophils # 0.1 10*3/uL (0.0-0.2); Basophils % 0.4 % (0.0-0.8); Eosinophils # 0.3 10*3/uL (0.0-0.87); Eosinophils % 1.8 % (0.00-10.9); Hematocrit 38.5 VOL% (42.0-52.0); Hemoglobin 12.9 GM/DL (14.0-18.0); Immature Granulocytes % 3.7 %; Immature Granulocytes Absolute 0.63 #; Lymphocytes % 11.7 % (21.2-54.2); Mean Corpuscular HGB Conc 33.5 GM/DL (32-36); Mean Corpuscular Hemoglobin 30 PG (27-34); Mean Corpuscular Volume 90.6 FL (87-102); Monocytes # 0.9 10*3/uL (0.11-0.8); Monocytes % 5.3 % (1.7-12.7); Neutrophils # 13.1 10*3/uL (1.4-7.4); Neutrophils % 77.1 % (38.7-73.9); Platelet Count 296 T/CUMM (130-400); Red Blood Count 4.25 MC/CUMM (3.8-5.5); White Blood Count 16.9 T/CUMM (4-12)
[2017-06-03 05:27] LABS: Calcium 8.5 MG/DL (8.5-10.1); Potassium 4.8 MMOL/L (3.5-5.1)
[2017-06-03 05:29] LABS: Hypochromasia 1+; Lymphocytes 12 % (20-55); Microcytosis Slight; Myelocytes 1 %; Segmented Neutrophils 84 % (50-85); Total Cells Counted 100
[2017-06-03 05:34] LABS: Alanine Aminotransferase 181 U/L (16-61); Albumin 2.9 G/DL (3.4-5.0); Alkaline Phosphatase 111 U/L (45-117); Aspartate Amino Transferase 107 U/L (0-37); Bilirubin,Indirect 0.6 MG/DL (0.0-1.0); Blood Urea Nitrogen 19 MG/DL (7-18); Calcium 8.5 MG/DL (8.5-10.1); Glucose 170 MG/DL (74-106); Potassium 4.9 MMOL/L (3.5-5.1); Sodium 136 MMOL/L (136-145); Total Protein 6.2 G/DL (6.4-8.3)
[2017-06-03 05:40] LABS: Troponin I Only 0.416 NG/ML (0.00-0.045)
[2017-06-03] MEDS: INSULIN REGULAR 100 UNIT/ML SUBCUT SCH (09:00)
[2017-06-03] MEDS: FERROUS SULFATE 325 MG TABLET PO SCH (09:01)
[2017-06-03] MEDS: glipiZIDE 10 MG TABLET PO SCH (09:01)
[2017-06-03] MEDS: CHLORHEXIDINE 0.12% ORAL RINSE 60 ML BOTTLE SWISH/SPIT SCH (09:01)
[2017-06-03] MEDS: ASPIRIN EC 325 MG TABLET PO SCH (09:01)
[2017-06-03] MEDS: LISINOPRIL 2.5 MG TABLET PO SCH (09:01)
[2017-06-03] MEDS: PANTOPRAZOLE 40 MG TABLET PO SCH (09:01)
[2017-06-03] MEDS: CARVEDILOL 3.125 MG TABLET PO SCH (09:01)
[2017-06-03] MEDS: LEVOFLOXACIN 500 MG TABLET PO SCH (09:01)
[2017-06-03] MEDS: DOCUSATE SODIUM 100 MG CAPSULE PO SCH (09:01)
[2017-06-03 12:32] VITALS: BP 84/60
== END 2017-06-03 12:40 | disposition home health service (06) | DRG 234 ==
LOC: N.ED 12:36 → N.EDINP 19:21 → N.TELES 19:30 → N.CVR 05-29 11:44 → N.TELES 05-30 11:39
PROVIDERS: ADMIT Internal Medicine Cardiovascular Disease; ATTEND Internal Medicine Cardiovascular Disease